=== PATIENT | female | born 1950 | race Caucasian/White ===

== ENCOUNTER → 2022-08-08 09:40 | Outpatient (REF) | payer MEDICARE, SELFPAY ==
--- NOTE | 2022-08-08 09:57 | CA_ITS ---
Transthoracic Echocardiogram Patient (Last, First, Middle): Amna Etienne, Gender: Female Date of : 1950 Age: 72 Procedure Date: 08/08/2022 Procedure Type: Transthoracic Echocardiogram Location: OP Height: 162.56 cm Weight: 73.03 kg BSA: 1.78 m2 Heart Rate: 59 bpm BP: 132 / 64 mmHg Coroner'S Juror: SB Referring MD: Lefty Goss MD Symptoms: CVA I63.9 Study Quality: Adequate ECG Rhythm: Bradycardia Conclusions: - The left ventricular systolic function is normal. The calculated ejection fraction is 60% by biplane method. - Evidence suggests grade III (severe) diastolic dysfunction. - There is no evidence of interatrial shunt by agitated saline. - There is mild tricuspid valve regurgitation. - Mild pulmonary hypertension is present. Findings Left Ventricle Normal left ventricular cavity size. There is normal left ventricular wall thickness. The left ventricular systolic function is normal. The calculated ejection fraction is 60% by biplane method. There is no evidence of regional wall motion abnormalities. E/E prime ratio is between 8 and 15 consistent with indeterminate filling pressures. Evidence suggests grade III (severe) diastolic dysfunction. LV peak GLS -21.9%. Right Ventricle Normal right ventricular cavity size and systolic function. Atria The left atrium is mildly dilated. There is no evidence of interatrial shunt by agitated saline. The right atrium is normal in size. (rest and valsalva). Aortic Valve There is a normal trileaflet aortic valve. There is no aortic valve stenosis. There is no aortic valve regurgitation. Mitral Valve The mitral valve appears normal. There is no mitral valve regurgitation. There is no mitral valve stenosis. Pulmonic Valve The pulmonic valve is likely normal. There is trace pulmonic valve regurgitation. Tricuspid Valve Normal tricuspid valve structure. There is mild tricuspid valve regurgitation. Mild pulmonary hypertension is present. Great Vessels The asc aorta is normal in size. Venous The inferior vena cava is normal in size and collapses greater than 50% with inspiration. Pericardium/Pleural There is no evidence of pericardial effusion. Prior Study Comparison No prior study available for comparison. Measurements 2D Linear Measurements IVSd: 0.86 0.6-0.9/0.6-1.0 cm LVIDd: 4.83 3.9-5.3/4.2-5.9 cm LVIDd Index: 2.71 2.4-3.2/2.2-3.1 cm/m2 LVIDs: 2.97 2.0-3.6 cm LVPWd: 0.72 0.7-1.1 cm LA Diam: 3.70 2.7-3.8/3.0-4.0 cm LAIDs Index: 2.08 1.5-2.3 cm/m2 LV Mass: 156.60 67-162/88-224 g LV Mass Index: 87.98 43-95/49-115 g/m2 LVOT Diam: 1.90 3.0+(-)1.3 cm 2D Systolic Function EF 4C: 62.10 >55% EF 2C: 59.70 >55% EF BiP: 59.70 >55% Mitral Valve MV Pk E: 0.97 MV PK A: 0.31 MV Decel Time: 190.00 E/A: 3.20 E'Lateral: 8.38 E'Medial: 6.64 E/E' Med: 14.60 E/E' Lat: 11.60 PHT: 56.00 MVA PHT: 3.93 Decel Bradley: 5.10 Aortic Valve AoV Pk Nash: 1.27 AoV Pk Grad: 6.00 YUMIKO: 2.42 LVOT LVOT Pk Nash: 1.21 LVOT Mn Nash: 0.89 LVOT VTI: 0.31 LVOT Pk Grad: 6.00 LVOT Mn Grad: 4.00 LVOT Diam: 1.90 LVOT Area: 2.84 Diastolic Function MV Pk E: 0.97 MV Pk A: 0.31 E/A: 3.20 E'Medial: 6.64 E/E' Med: 14.60 E' Laterial: 8.38 E/E' Lat: 11.60 Right Ventricle TAPSE (mm): 26.50 TVS' Nash: 13.50 Tricuspid Valve TR Pk Nash: 3.26 TR Pk Grad: 42.00 RA Press: 3.00 RVSP: 45.00 Great Vessels Aorta Sinus of Valsalva: 2.60 2.0-3.5 cm Ao Asc: 3.20 2.1-3.4 cm Pulmonary Veins Pulm Vein S/D 0.60 Pulmonary Valve PV Pk Nash: 0.88 Peak PV Grad: 3.00 Updated in Other Vendor System with Status of Final Greg Kitchen MD electronically signed on 08/09/2022 3:39:39 PM with status of Final
== END ==
LOC: HO.CARD 09:40
PROVIDERS: PCP Internal Medicine; Visit Provider Psychiatry & Neurology Neurology
DX: Z86.73 Personal history of transient ischemic attack (TIA), and cerebral infarction without residual deficits (principal)
CPT/HCPCS: 93306; 93356